=== PATIENT | male | born 1985 | race African-American/Black ===

== ENCOUNTER 2018-05-04 11:10 | Emergency (ER) | payer OTHER ==
[2018-05-04 13:57] LABS: Absolute Lymphocytes (CBC) 0.7 K/uL (0.7-4.9); Absolute Monocytes 0.3 K/uL (0.1-1.3); Absolute Neutrophil 3.9 K/uL (1.8-8.0); Basophils % 0.4 % (0-1.3); Eosinophils % 0.1 % (0-4.4); Hematocrit 41.4 % (39.6-49.0); Lymphocytes % 14.7 % (15.3-44.8); MCH 26.3 pg (27.0-35.0); MPV 7.7 fL (7.6-11.3); Monocytes % 5.3 % (3.3-12.3); RBC Red Blood Cell Count 5.17 M/uL (4.33-5.43)
[2018-05-04 13:58] LABS: Protime INR 1.12
[2018-05-04 14:16] LABS: Potassium 3.3 mmol/L (3.5-5.1)
--- NOTE | 2018-05-04 14:35 | RAD REPORT ---
EXAM DESCRIPTION: RAD - Chest Single View - 05/04/2018 2:25 pm CLINICAL HISTORY: Dyspnea COMPARISON: None. TECHNIQUE: AP portable chest image was obtained 1351 hours . FINDINGS: Lungs are clear. Heart size upper normal. Vasculature within normal limits. No measurable pleural effusion and no pneumothorax. No gross bony abnormality seen. No acute aortic findings suspec steven. IMPRESSION: No acute cardiopulmonary process. Heart size is upper normal. No failure findings.
[2018-05-04] MEDS ORDERED: ONDANSETRON 4 MG/2 ML VIAL ONE (14:44)
[2018-05-04] MEDS ORDERED: ENALAPRILAT 1.25 MG/ML VIAL IV ONE (14:44)
[2018-05-04] MEDS ORDERED: MECLIZINE HCL 12.5 MG TAB ONE (14:44)
--- NOTE | 2018-05-04 14:53 | RAD REPORT ---
EXAM DESCRIPTION: CT - Head Brain Wo Cont - 05/04/2018 2:38 pm CLINICAL HISTORY: Headache, dizziness COMPARISON: None. TECHNIQUE: Axial 5 mm thick images of the head were obtained without IV contrast. All CT scans are performed using dose optimization technique as appropriate and may include automated exposure control or mA/KV adjustment according to patient size. FINDINGS: No intracranial hemorrhage, mass, edema or shift of mid-line structures. No acute infarcti on changes seen. No abnormal extra-axial fluid collections. Ventricles are normal. Mastoid air cells and visualized portions of the paranasal sinuses are clear. Middle ears appear norm ally aerated with no external auditory canal abnormality. No acute bony findings. IMPRESSION: Negative non-contrast CT head examination.
[2018-05-04 15:09] LABS: Urine Blood TRACE (NEG); Urine Glucose NEGATIVE (NEG); Urine Protein 1+ (NEG); Urine Specific Gravity 1.015 (1.005-1.030); Urine pH 8.5 (5.0-7.0)
--- NOTE | 2018-05-04 16:00 | EDPHYS ---
Physician Documentation [facility] Name: Ronald Weller Age: 32 yrs Sex: Male : 1985 Arrival Date: 05/04/2018 Time: 11:16 Bed 26 Private MD: None, None ED Physician Pavan Stapleton HPI: 05/04 14:31 This 32 yrs old Black Male presents to ER via Ambulatory with complaints of Dizziness, jr8 Nausea/Vomiting/Diarrhea, EAR PROBLEM. 14:31 Onset: The symptoms/episode began/occurred acutely, 4 day(s) ago. Modifying factors: jr8 The symptoms are alleviated by nothing. Associated signs and symptoms: The patient has no apparent associated signs or symptoms. Severity of symptoms: At their worst the symptoms were mild in the emergency department the symptoms are unchanged. Patient's baseline: Neuro: alert and fully oriented, Motor: no deficits, Ambulation: walks without assistance, Speech: normal. The patient has not experienced similar symptoms in the past. The patient has not recently seen a physician. Historical: - Allergies: 11:22 No Known Allergies; sg - Home Meds: 11:22 None [Active]; sg - PMHx: 11:22 Asthma; sg - PSHx: 11:22 None; sg - Immunization history:: Adult Immunizations up to date. - Social history:: Smoking status: Patient/guardian denies using tobacco. - Ebola Screening: : Patient negative for fever greater than or equal to 101.5 degrees Fahrenheit, and additional compatible Ebola Virus Disease symptoms Patient denies exposure to infectious person Patient denies travel to an Ebola-affected area in the 21 days before illness onset No symptoms or risks identified at this time. ROS: 14:31 Eyes: Negative for injury, pain, redness, and discharge, ENT: Negative for injury, jr8 pain, and discharge, Neck: Negative for injury, pain, and swelling, Cardiovascular: Negative for chest pain, palpitations, and edema, Respiratory: Negative for shortness of breath, cough, wheezing, and pleuritic chest pain, Back: Negative for injury and pain, MS/Extremity: Negative for injury and deformity, Skin: Negative for injury, rash, and discoloration. 14:31 Abdomen/GI: Positive for nausea, vomiting, and diarrhea, Negative for abdominal pain, abdominal cramps, abdominal distension, anorexia, dysphagia, hematemesis, black/tarry stool, rectal pain, rectal bleeding, bowel incontinence, flatulence. 14:31 Neuro: Positive for dizziness, headache, Negative for altered mental status, gait disturbance, hearing loss, loss of consciousness, numbness, seizure activity, speech changes, syncope, near syncope, tingling, tinnitus, tremor, visual changes, weakness. Exam: 14:31 Eyes: Pupils equal round and reactive to light, extra-ocular motions intact. Lids and jr8 lashes normal. Conjunctiva and sclera are non-icteric and not injected. Cornea within normal limits. Periorbital areas with no swelling, redness, or edema. ENT: Nares patent. No nasal discharge, no septal abnormalities noted. Tympanic membranes are normal and external auditory canals are clear. Oropharynx with no redness, swelling, or masses, exudates, or evidence of obstruction, uvula midline. Mucous membranes moist. Neck: Trachea midline, no thyromegaly or masses palpated, and no cervical lymphadenopathy. Supple, full range of motion without nuchal rigidity, or vertebral point tenderness. No Meningismus. Cardiovascular: Regular rate and rhythm with a normal S1 and S2. No gallops, murmurs, or rubs. Normal PMI, no JVD. No pulse deficits. Respiratory: Lungs have equal breath sounds bilaterally, clear to auscultation and percussion. No rales, rhonchi or wheezes noted. No increased work of breathing, no retractions or nasal flaring. Abdomen/GI: Soft, non-tender, with normal bowel sounds. No distension or tympany. No guarding or rebound. No evidence of tenderness throughout. Back: No spinal tenderness. No costovertebral tenderness. Full range of motion. Skin: Warm, dry with normal turgor. Normal color with no rashes, no lesions, and no evidence of cellulitis. MS/ Extremity: Pulses equal, no cyanosis. Neurovascular intact. Full, normal range of motion. Neuro: Awake and alert, GCS 15, oriented to person, place, time, and situation. Cranial nerves II-XII grossly intact. Motor strength 5/5 in all extremities. Sensory grossly intact. Cerebellar exam normal. Normal gait. 16:16 ECG was reviewed by the Attending Physician. [facility] Vital Signs: 11:22 BP 153 / 97; Pulse 82; Resp 17; Temp 98.6; Pulse Ox 98% on R/A; Weight 92.53 kg; Height sg 5 ft. 10 in. (177.80 cm); Pain 0/10; 12:27 BP 166 / 124; Pulse 68; Resp 16; Pulse Ox 100% on R/A; Pain 0/10; sg 12:51 BP 156 / 108; Pulse 71; Resp 22; Pulse Ox 100% on R/A; Pain 0/10; ed1 14:47 BP 157 / 109; Pulse 63; Resp 20; Pulse Ox 98% on R/A; Pain 0/10; ed1 15:18 BP 158 / 100; Pulse 60; Resp 18; Pulse Ox 97% on R/A; Pain 0/10; ed1 15:38 BP 153 / 96; Pulse 52; ed1 16:20 BP 157 / 91; Pulse 60; Resp 17; Pulse Ox 100% on R/A; Pain 0/10; ed1 11:22 Body Mass Index 29.27 (92.53 kg, 177.80 cm) MDM: 12:49 Patient medically screened. jr8 15:57 Data reviewed: vital signs, nurses notes, lab test result(s), EKG, radiologic studies, jr8 plain films. Data interpreted: Pulse oximetry: on room air is 97 %. Interpretation: normal. Counseling: I had a detailed discussion with the patient and/or guardian regarding: the historical points, exam findings, and any diagnostic results supporting the discharge/admit diagnosis, the presence of at least one elevated blood pressure reading (>120/80) during this emergency department visit, lab results, radiology results, the need for outpatient follow up, a family practitioner, nephrology , to return to the emergency department if symptoms worsen or persist or if there are any questions or concerns that arise at home. Response to treatment: the patient's symptoms have markedly improved after treatment. Special discussion: I have referred the patient to see his PCP for further evaluation of high blood pressure. 05/04 13:15 Order name: Basic Metabolic Panel; Complete Time: 14:17 05/04 13:15 Order name: CBC with Diff; Complete Time: 14:05/04 13:15 Order name: NT PRO-BNP; Complete Time: 14:17 05/04 13:15 Order name: PT-INR; Complete Time: 14:05/04 13:15 Order name: Troponin (emerg Dept Use Only); Complete Time: 14:17 05/04 14:08 Order name: Urine Dipstick--Ancillary (enter results); Complete Time: 15:25 em1 05/04 13:15 Order name: XRAY Chest (1 view); Complete Time: 14:37 05/04 13:15 Order name: EKG; Complete Time: 13:15 05/04 13:15 Order name: Cardiac monitoring; Complete Time: 13:38 05/04 13:15 Order name: EKG - Nurse/Tech; Complete Time: 13:38 05/04 14:24 Order name: CT Head Brain wo Cont; Complete Time: 14:57 05/04 13:15 Order name: IV Saline Lock; Complete Time: 13:38 05/04 13:15 Order name: Labs collected and sent; Complete Time: 13:38 05/04 13:15 Order name: O2 Per Protocol; Complete Time: 13:38 05/04 13:15 Order name: O2 Sat Monitoring; Complete Time: 13:38 05/04 13:15 Order name: Urine Dipstick-Ancillary (obtain specimen); Complete Time: 14:02 jr EC:16 Rate is 59 beats/min. Rhythm is regular, Sinus bradycardia. QRS [place] is Normal. [place] jr8 interval is normal at 170 msec. QRS interval is normal at 100 msec. QT interval is normal at 392 msec. No Q waves. T waves are Inverted in leads I, II, III, aVF, V3, V4, V5, V6. No ST changes noted. Clinical impression: LVH. Interpreted by me. Reviewed by me. Administered Medications: 14:45 Drug: Meclizine 25 mg Route: PO; ed1 16:23 Follow up: Response: No adverse reaction; Marked relief of symptoms ed1 14:50 Drug: Zofran 4 mg Route: IVP; Site: right antecubital; ss 16:22 Follow up: Response: No adverse reaction; Nausea is decreased ed1 14:54 Drug: Enalaprilat 1.25 mg Route: IV; Rate: calculated rate; Site: right antecubital; ss 16:23 Follow up: Response: No adverse reaction; Blood pressure is lowered; IV Status: ed1 Completed infusion Disposition: 16:30 Co-signature as Attending Physician, Pavan Stapleton MD. rn Disposition: 05/04/18 15:59 Discharged to Home. Impression: Dizziness, Essential (primary) hypertension. - Condition is Stable. - Discharge Instructions: Dizziness, Hypertension, Heart Disease Prevention. - Prescriptions for amlodipine 5 mg Oral tablet - take 1 tablet by ORAL route once daily; 30 tablet. Lisinopril 10 mg Oral Tablet - take 1 tablet by ORAL route once daily; 20 tablet. - Work release form, Medication Reconciliation Form, Thank You Letter, Antibiotic Education, Prescription Opioid Use form. - Follow up: Tom Ellison MD; When: 2 - 3 days; Reason: Recheck today's complaints, Continuance of care, Re-evaluation by your physician. - Problem is new. - Symptoms have improved. Signatures: Dispatcher [employer] EDMS John Beck RN Paavn Lindsay MD MD rn Smirch, Shelby, RN RN Sharon, Gabbi, CHIEF ENGINEER [employer]LLING [employer] RECOVERY CHIEF ENGINEER [employer]OV[employer] ed1 Nato Ny PA PA jr8 Corrections: (The following items were deleted from the chart) 16:24 15:59 05/04/2018 15:59 Discharged to Home. Impression: Dizziness; Essential (primary) ed1 hypertension. Condition is Stable. Forms are Work release form, Medication Reconciliation Form, Thank You Letter, Antibiotic Education, Prescription Opioid Use. Follow up: Tom Ellison; When: 2 - 3 days; Reason: Recheck today's complaints, Continuance of care, Re-evaluation by your physician. Problem is new. Symptoms have improved. jr8
--- NOTE | 2018-05-04 16:00 | ER ---
Nurse's Notes [facility] Name: Ronald Weller Age: 32 yrs Sex: Male : 1985 Arrival Date: 05/04/2018 Time: 11:16 Bed 26 Private MD: None, None Diagnosis: Dizziness;Essential (primary) hypertension Presentation: 05/04 11:23 Presenting complaint: Patient states: Right ear congestion, dizziness that started sg about four days ago, nausea, denies vomiting, diarrhea reports that was seen by a PCP and given medication for the nausea diagnosed with stomach virus. Transition of care: patient was not received from another setting of care. Onset of symptoms was April 26, 2018. Risk Assessment: Do you want to hurt yourself or someone else? Patient reports no desire to harm self or others. Initial Sepsis Screen: Does the patient meet any 2 criteria? No. Patient's initial sepsis screen is negative. Does the patient have a suspected source of infection? No. Patient's initial sepsis screen is negative. Care prior to arrival: None. 11:23 Method Of Arrival: Ambulatory sg 11:23 Acuity: BUCKY 3 sg Historical: - Allergies: 11:22 No Known Allergies; sg - Home Meds: 11:22 None [Active]; sg - PMHx: 11:22 Asthma; sg - PSHx: 11:22 None; sg - Immunization history:: Adult Immunizations up to date. - Social history:: Smoking status: Patient/guardian denies using tobacco. - Ebola Screening: : Patient negative for fever greater than or equal to 101.5 degrees Fahrenheit, and additional compatible Ebola Virus Disease symptoms Patient denies exposure to infectious person Patient denies travel to an Ebola-affected area in the 21 days before illness onset No symptoms or risks identified at this time. Screenin:51 Abuse screen: Denies threats or abuse. Denies injuries from another. Nutritional ed1 screening: No deficits noted. Tuberculosis screening: No symptoms or risk factors identified. Fall Risk None identified. 13:39 Fall Risk No fall in past 12 months (0 pts). No secondary diagnosis (0 pts). IV access ed1 (20 points). Ambulatory Aid- None/Bed Rest/Nurse Assist (0 pts). Gait- Normal/Bed Rest/Wheelchair (0 pts) Mental Status- Oriented to own ability (0 pts). Total Dietrich Fall Scale indicates No Risk (0-24 pts). Assessment: 12:28 Reassessment: updated on status of ER and given approx wait time, Charge Nurse Berna foote Notified of pt VS. 12:51 General: Appears in no apparent distress. Behavior is calm, cooperative. Pain: Denies ed1 pain. Neuro: Level of Consciousness is awake, alert, obeys commands, Oriented to person, place, time, situation, Reports dizziness. Cardiovascular: Denies chest pain, Heart tones S1 S2 present Rhythm is sinus rhythm. Respiratory: Airway is patent Respiratory effort is even, unlabored, Respiratory pattern is regular, symmetrical, Breath sounds are clear bilaterally. Denies cough, shortness of breath. GI: Abdomen is non-distended, Bowel sounds present X 4 quads. Abd is soft and non tender X 4 quads. Reports diarrhea, nausea, Patient currently denies abdominal pain. : No signs and/or symptoms were reported regarding the genitourinary system. EENT: Reports right ear congestion. Derm: Skin is intact, is healthy with good turgor, Skin is dry, Skin is normal, Skin temperature is warm. Musculoskeletal: Circulation, motion, and sensation intact. 14:47 Reassessment: Patient appears in no apparent distress at this time. No changes from ed1 previously documented assessment. Patient and/or family updated on plan of care and expected duration. Pain level reassessed. Patient is alert, oriented x 3, equal unlabored respirations, skin warm/dry/pink. Patient denies pain at this time. 15:18 Reassessment: Patient appears in no apparent distress at this time. No changes from ed1 previously documented assessment. Patient and/or family updated on plan of care and expected duration. Pain level reassessed. Patient is alert, oriented x 3, equal unlabored respirations, skin warm/dry/pink. Patient denies pain at this time. 16:20 Reassessment: Patient appears in no apparent distress at this time. No changes from ed1 previously documented assessment. Patient and/or family updated on plan of care and expected duration. Pain level reassessed. Patient is alert, oriented x 3, equal unlabored respirations, skin warm/dry/pink. Patient denies pain at this time. Patient states feeling better. Patient states symptoms have improved. Vital Signs: 11:22 BP 153 / 97; Pulse 82; Resp 17; Temp 98.6; Pulse Ox 98% on R/A; Weight 92.53 kg; Height sg 5 ft. 10 in. (177.80 cm); Pain 0/10; 12:27 BP 166 / 124; Pulse 68; Resp 16; Pulse Ox 100% on R/A; Pain 0/10; sg 12:51 BP 156 / 108; Pulse 71; Resp 22; Pulse Ox 100% on R/A; Pain 0/10; ed1 14:47 BP 157 / 109; Pulse 63; Resp 20; Pulse Ox 98% on R/A; Pain 0/10; ed1 15:18 BP 158 / 100; Pulse 60; Resp 18; Pulse Ox 97% on R/A; Pain 0/10; ed1 15:38 BP 153 / 96; Pulse 52; ed1 16:20 BP 157 / 91; Pulse 60; Resp 17; Pulse Ox 100% on R/A; Pain 0/10; ed1 11:22 Body Mass Index 29.27 (92.53 kg, 177.80 cm) ED Course: 11:16 Patient arrived in ED. sb2 11:16 None, None is Private Physician. sb2 11:19 Arm band placed on. sg 11:25 Triage completed. sg 12:48 Berna Anderson RN is Primary Nurse. ss 12:49 Nato Ny PA is PHCP. jr8 12:49 Pavan Stapleton MD is Attending Physician. jr8 12:51 Primary Nurse role handed off by Berna Anderson RN ed1 12:51 Gabbi Herrera LVN is Primary Nurse. ed1 12:51 Patient has correct armband on for positive identification. Placed in gown. Bed in low ed1 position. Call light in reach. Side rails up X 1. Adult w/ patient. media monitor on. Pulse ox on. NIBP on. 13:31 EKG done, by instrument technician helper. reviewed by Nato GRIFFITHS. at1 13:38 Initial lab(s) drawn, by me, sent to lab. Inserted saline lock: 20 gauge in right ed1 antecubital area, using aseptic technique. Blood collected. 14:25 XRAY Chest (1 view) In Process Unspecified. EDMS 14:38 CT Head Brain wo Cont In Process Unspecified. EDMS 15:58 Ellison, A, MD is Referral Physician. jr8 16:20 No provider procedures requiring assistance completed. IV discontinued, intact, ed1 bleeding controlled, No redness/swelling at site. Pressure dressing applied. Administered Medications: 14:45 Drug: Meclizine 25 mg Route: PO; ed1 16:23 Follow up: Response: No adverse reaction; Marked relief of symptoms ed1 14:50 Drug: Zofran 4 mg Route: IVP; Site: right antecubital; ss 16:22 Follow up: Response: No adverse reaction; Nausea is decreased ed1 14:54 Drug: Enalaprilat 1.25 mg Route: IV; Rate: calculated rate; Site: right antecubital; ss 16:23 Follow up: Response: No adverse reaction; Blood pressure is lowered; IV Status: ed1 Completed infusion Outcome: 15:59 Discharge ordered by MD. jr8 16:20 Discharged to home ambulatory, with family. ed1 16:20 Condition: good 16:20 Discharge instructions given to patient, Instructed on discharge instructions, follow up and referral plans. medication usage, Demonstrated understanding of instructions, follow-up care, medications, Prescriptions given X 2. 16:24 Patient left the ED. ed1 Signatures: Dispatcher [employer] EDMS John Beck RN RN sg Smirch, Shelby, RN RN ss Riggs, Erika, PRIVATE CLIENT ADVISOR PRIVATE CLIENT ADVISOR ed1 Nato Ny PA PA jr8 Annika acevedo, auditor in charge EKG Tat1 Tangela Moreau sb2
--- NOTE | 2018-05-04 18:44 | EKG ---
Test Date: 2018-05-04 Test Time: 13:21:52 High Pressure Firer: HENRIK MEASUREMENT RESULTS: Intervals: Rate: 59 AL: 170 QRSD: 100 QT: 396 QTc: 392 [place]: P: 58 AL: 170 QRS: 13 T: 265 INTERPRETIVE STATEMENTS: Sinus bradycardia Left ventricular hypertrophy with repolarization abnormality Abnormal ECG No previous ECG available for comparison Electronically Signed On 05-04-18 18:43:33 CDT by Redd Cox
== END 2018-05-04 16:24 | disposition home or self-care (01) ==
LOC: ER 11:10
DX: I10 Essential (primary) hypertension (principal)
CPT/HCPCS: 36415; 70450; 71045; 80048; 81003; 83880; 84484; 85025; 85610; 93005; 96365; 96375; 99285; J2405